=== PATIENT | female | born 1995 | race Caucasian/White ===

== ENCOUNTER 2016-04-12 05:12 | Day surgery (SDC) | payer MEDICAID ==
[2016-04-12] VITALS (14 sets, daily range): BP systolic 103–131; BP diastolic 59–81; Ht 160 cm; Wt 52.3 kg
[~2016-04-12] VITALS: Ht 160 cm; Wt 52.3 kg
[2016-04-12 05:55] LABS: BASOPHILS 0.3 % (0.0-2.0); EOSINOPHILS 4.3 % (0-7); HEMOGLOBIN 13.8 g/dL (12-16); IMMATURE GRANULOCYTES 0.2 % (0-5); LYMPHOCYTES 27.9 % (15-50); MCH 29.6 pg (26.0-34.0); MCHC 34.5 g/dL (31.0-37.0); MCV 85.8 fL (80.0-100.0); MEAN PLATELET VOLUME 10.3 fL (7.4-10.4); MONOCYTES 7.1 % (2-11); NEUTROPHILS 60.2 % (40-80); PLATELET COUNT 186 10x3/uL (130-400); RBC 4.66 10x6/uL (4.00-5.40); RDW 13.2 % (11.5-14.5); WBC 6.2 10x3/uL (4.8-10.8)
[2016-04-12] MEDS ORDERED: IBUPROFEN600 MG PO (08:45)
[2016-04-12] MEDS ORDERED: PERCOCET 5-3251 TAB PO (08:46)
--- NOTE | 2016-04-12 08:50 | NUR ---
DR ZAPATA REQUESTED LAB DRAW AND INSERTION OF FLOEY IN THE RR
--- NOTE | 2016-04-12 08:51 | NUR ---
LAB DRAW DONE
[2016-04-12 08:58] LABS: BASOPHILS 0.1 % (0.0-2.0); EOSINOPHILS 1.4 % (0-7); IMMATURE GRANULOCYTES 0.1 % (0-5); LYMPHOCYTES 18.5 % (15-50); MCH 29.2 pg (26.0-34.0); MCHC 33.4 g/dL (31.0-37.0); MCV 87.5 fL (80.0-100.0); MEAN PLATELET VOLUME 10.4 fL (7.4-10.4); MONOCYTES 3.3 % (2-11); NEUTROPHILS 76.6 % (40-80); PLATELET COUNT 183 10x3/uL (130-400); WBC 7.3 10x3/uL (4.8-10.8)
[2016-04-12 09:01] LABS: HEMOGLOBIN 10.5 g/dL (12-16); RBC 3.59 10x6/uL (4.00-5.40)
[2016-04-12 09:02] LABS: HEMATOCRIT 31.4 % (36.0-48.0)
--- NOTE | 2016-04-12 09:09 | NUR ---
NELLA ALCARAZ PLACED THE FLOEY CATHETER IN RR
--- NOTE | 2016-04-12 10:14 | NUR ---
[address] [place] [address] [address]ED [address] [place] AT DR. LYN'S OFFICE TO RELAY TO DR. LYN.
[2016-04-12 12:15] LABS: BASOPHILS 0.1 % (0.0-2.0); EOSINOPHILS 0.2 % (0-7); HEMATOCRIT 29.9 % (36.0-48.0); HEMOGLOBIN 10.4 g/dL (12-16); IMMATURE GRANULOCYTES 0.2 % (0-5); LYMPHOCYTES 10.3 % (15-50); MCH 29.7 pg (26.0-34.0); MCHC 34.8 g/dL (31.0-37.0); MCV 85.4 fL (80.0-100.0); MEAN PLATELET VOLUME 10.1 fL (7.4-10.4); MONOCYTES 1.3 % (2-11); NEUTROPHILS 87.9 % (40-80); PLATELET COUNT 198 10x3/uL (130-400); RDW 13.1 % (11.5-14.5); WBC 9.1 10x3/uL (4.8-10.8)
--- NOTE | 2016-04-12 14:03 | NUR ---
1345 LYING, SITTING AND STANDING BP DONE REPORT TO DR. LYN, ORDERS RECEIVED, SUPERVISIOR NOTIFIED, LAB NOTIFIED, PT. INFORMED.
--- NOTE | 2016-04-12 14:34 | NUR ---
1430 REPORT PHONED TO PHILIP KING, WOODY PAD CHANGED TWICE.
--- NOTE | 2016-04-12 14:55 | NUR ---
1445 INTAKE HAS BEEN ORALLY 500CC
--- NOTE | 2016-04-12 16:45 | NUR ---
PT IS LYING IN BED. BLOOD RECEIVED AND STARTED. 98.4 98 118/80 16. WITNESSED WITH TRUNG BANSAL L& DELIVERY.
--- NOTE | 2016-04-12 17:00 | NUR ---
PT IS DOING WELL OFFER NO COMPLAINTS. BED IS LOW. SIDE RAILS UP X 2 AND CALL LIGHT IN REACH.
--- NOTE | 2016-04-12 17:46 | NUR ---
PT IS SITTING UP IN BED EATING. SHE OFFERS NO COMPLAINTS. TOLERATING THE INFUSION WELL. HER IS AT BEDSIDE. BED IS LOW, SIDE RAILS UP X 2 AND CALL LIGHT IN REACH.
--- NOTE | 2016-04-12 18:16 | NUR ---
WOODY PAD CHANGE. SMALL LOCHIA RUBRA NOTED ON PAD. PT IS DOING WELL. OFFERS NO COMPLAINTS. HUSBANDS AT BEDSIDE. PT ATE DINNER AND TOLERATED WELL. BED IS LOW, SIDE RAILS UP X 2 AND CALL LIGHT IN REACH.
--- NOTE | 2016-04-12 19:45 | NUR ---
ASSESSMENT PER FLOW SHEET, VS OBTAINED, IV IN LEFT FA INTACT WITH NO REDNESS OR EDEMA, BLOOD FINISHED INFUSING, NS STARTED AT 125 ML/HR TO FLUSHED LINE, PT REPORTS FLATUS, STATES "I FEEL LIKE I NEED TO HAVE A BM", INFORMED PT THAT I WILL SEE ABOUT GETTING AN ORDER TO REMOVE ANDRE AND THEN GET HER UP TO BR, PT STATES "THANK YOU SO MUCH, I HAVE BEEN WANTING THIS CATHETER OUT", HALF DOLLAR SIZE BLOOD NOTED ON WOODY PAD, FRESH PAD PLACED, ANDRE CATH INTACT, EMPTIED 350 MLS OF CLEAR YELLOW URINE FROM ANDRE CHAMBER TO ANDRE BAG, PT DENIES NEEDS OR PAIN, SPOUSE AT BEDSIDE
--- NOTE | 2016-04-12 20:15 | NUR ---
DR LYN ON L&D UNIT, REPORT OF VS, OUTPUT, AMOUNT OF BLOOD ON WOODY PAD, AND PT NEEDING TO HAVE BM, ORDERS RECEIVED TO REMOVE ANDRE
--- NOTE | 2016-04-12 20:20 | NUR ---
ANDRE CATH REMOVED, TIP INTACT, EMPTIED 700 MLS OF CLEAR YELLOW URINE FROM ANDRE, PT UP TO BR, GAIT STEADY, PT DENIES ANY NAUSEA, DIZZINESS, LIGHT HEADEDNESS, PT TO COMMODE, PT INST TO USE CALL LIGHT FOR ANY ASSISTANCE, INFORMED PT THAT I WILL BE RIGHT BACK WITH WOODY PANTIES, PT VERBALIZES UNDERSTANDING, DENIES NEEDS AT THIS TIME
--- NOTE | 2016-04-12 20:27 | NUR ---
PT FINISHED, HAD BM AND VOIDED WITH NO DIFFICULTY, WOODY PAD AND PANTIES PLACED, NO VAG BLEEDING NOTED, PT BACK TO BED, STATES "I FEEL PRETTY GOOD", PT DENIES NEEDS
--- NOTE | 2016-04-12 21:20 | NUR ---
PT RESTING, VS OBTAINED, REQUESTED AND SERVED GERARD, DENIES FURTHER NEEDS
[2016-04-12 21:59] LABS: BASOPHILS 0.1 % (0.0-2.0); EOSINOPHILS 0.9 % (0-7); HEMATOCRIT 28.5 % (36.0-48.0); HEMOGLOBIN 9.8 g/dL (12-16); IMMATURE GRANULOCYTES 0.2 % (0-5); LYMPHOCYTES 18.2 % (15-50); MCH 28.4 pg (26.0-34.0); MCHC 34.4 g/dL (31.0-37.0); MONOCYTES 6.9 % (2-11); NEUTROPHILS 73.7 % (40-80); PLATELET COUNT 178 10x3/uL (130-400); RBC 3.45 10x6/uL (4.00-5.40); RDW 14.7 % (11.5-14.5)
--- NOTE | 2016-04-12 22:00 | NUR ---
PT WATCHING TV, BEDDING PROVIDED TO SPOUSE, PT DENIES NEEDS OR PAIN
[2016-04-12 22:12] LABS: MCV 82.6 fL (80.0-100.0)
--- NOTE | 2016-04-12 22:50 | NUR ---
DR LYN NOTIFIED OF CBC, WILL ADM 2ND UNIT
--- NOTE | 2016-04-12 23:00 | NUR ---
2ND UNIT OF [facility] INIATED, VERIFIED PER THIS NURSE AND MIRIAM BECKER RN, VS STARTED, PT INST ON AND VERBALIZES UNDERSTANDING OF TRANSFUSION REACTION, SPOUSE AT BEDSIDE
--- NOTE | 2016-04-12 23:15 | NUR ---
THIS RN CONTINUES AT BEDSIDE, PT REQUESTED AND SERVED SANDWICH TRAY AND FRESH H20, PT DENIES PAIN
--- NOTE | 2016-04-12 23:30 | NUR ---
THIS RN AT BEDSIDE, VS STABLE, PT DENIES ANY TRANSFUSION REACTION, TOLERATING INFUSION WELL, DENIES NEEDS AT THIS TIME, SPOUSE AT BEDSIDE
[2016-04-13] VITALS: BP 103/67
--- NOTE | 2016-04-13 | NUR ---
PT RESTING WITH EYES CLOSED, RESP QUIET, NO DISTRESS NOTED, LEFT UNDISTURBED AT THIS TIME, SPOUSE AT BEDSIDE
[2016-04-13 00:30] VITALS: BP 124/69
--- NOTE | 2016-04-13 00:30 | NUR ---
PT RESTING WITH EYES CLOSED, RESP QUIET, NO DISTRESS NOTED, LEFT UNDISTURBED AT THIS TIME, VS CONTINUE AND STABLE, SPOUSE AT BEDSIDE
--- NOTE | 2016-04-13 01:05 | NUR ---
PT CHIP APPLYING MACHINE TENDER LIGHT, ADRIENNE DESHPANDE, RN TO ROOM, ASSISTS PT TO BR, REPORTS PT VOIDED WITH NO DIFFICULTY, PT BACK TO BED, EXTRA PILLOW PROVIDED
[2016-04-13 01:45] VITALS: BP 132/64
--- NOTE | 2016-04-13 01:45 | NUR ---
2ND UNIT OF [facility] FINISHED INFUSING, NS STARTED TO FLUSH LINE, INFORMED PT THAT LAB SHOULD BE DOWN AROUND 2:45/3:00 TO DRAW BLOOD, PT VERBALIZES UNDERSTANDING, DENIES NEEDS AT THIS TIME, SPOUSE AT BEDSIDE
--- NOTE | 2016-04-13 02:45 | NUR ---
PT RESTING WITH EYES CLOSED, AROUSES TO SOFT VERBAL STIMULATION, VS OBTAINED, PT UP TO BR, VOIDED BY SELF WITH NO DIFFICULTY, PT BACK TO BED, NS FINISHED INFUSING, IV CONVERTED TO SALINE LOCK, FLUSHED WITH NO DIFFICULTY, PT DENIES NEEDS OR PAIN AT THIS TIME, SPOUSE ASLEEP IN RECLINER
--- NOTE | 2016-04-13 03:15 | NUR ---
DR LYN ON UNIT, REPORT OF CBC NOT DRAWN YET, DR LYN ORDERS TO CALL HER IF CRIT IS <26, OTHER FRAIRE, MAY D/C PT EARLY AM, AND FOLLOW UP WITH HER IN 2 WEEKS
--- NOTE | 2016-04-13 04:25 | NUR ---
LAB TO ROOM FOR BLOOD DRAW
--- NOTE | 2016-04-13 04:40 | NUR ---
PT RESTING WITH EYES CLOSED, RESP QUIET, NO DISTRESS NOTED, LEFT UNDISTURBED AT THIS TIME, SPOUSE ASLEEP IN RECLINER
[2016-04-13 05:12] LABS: BASOPHILS 0.3 % (0.0-2.0); EOSINOPHILS 1.9 % (0-7); HEMATOCRIT 31.5 % (36.0-48.0); HEMOGLOBIN 10.9 g/dL (12-16); IMMATURE GRANULOCYTES 0.3 % (0-5); LYMPHOCYTES 26.7 % (15-50); MCH 28.8 pg (26.0-34.0); MCHC 34.6 g/dL (31.0-37.0); MCV 83.3 fL (80.0-100.0); MEAN PLATELET VOLUME 10.4 fL (7.4-10.4); MONOCYTES 7.6 % (2-11); NEUTROPHILS 63.2 % (40-80); PLATELET COUNT 153 10x3/uL (130-400); RBC 3.78 10x6/uL (4.00-5.40); RDW 14.5 % (11.5-14.5)
--- NOTE | 2016-04-13 06:34 | NUR ---
PT RESTING WITH EYES CLOSED, RESP QUIET, NO DISTRESS NOTED, LEFT UNDISTURBED AT THIS TIME, SPOUSE ASLEEP IN RECLINER
--- NOTE | 2016-04-13 07:00 | NUR ---
SHIFT REPORT TO DAY SHIFT
[2016-04-13 07:30] VITALS: BP 110/69
--- NOTE | 2016-04-13 07:45 | NUR ---
PT WAS RECEIVED THIS AM, LYING IN BED SLEEPING. HER IS AT BEDSIDE. SHE OFFERS NO COMPLAINTS. I TOLD HER THAT WE HAVE A DISCHARGE ORDER ON HER. GEN- AWAKE AND ALERT. LUNGS- CLEAR. HEART- RRR. ABD- SOFT, NT, BS+. EXT- NO EDEMA. BED IS LOW. CALL LIGHT IN REACH ANDSIDE RAILS UP X 2.
--- NOTE | 2016-04-13 08:30 | NUR ---
PT IS SLEEPING. BED IS LOW, SIDE RAILS UP X 2 AND CALL LIGHT IN REACH.
--- NOTE | 2016-04-13 09:50 | NUR ---
PT WAS DISCHARGED HOME PER ORDER. DISCHARGE INSTRUCTIONS GIVEN , PRESCRIPTIONS GIVEN AND FU APPT GIVEN. PT ASKED FOR4 A WORK EXCUSE TO GO BACK TO WORK NEXT SUN AFTER FU WITH DR LYN ON SUNDAY. PT TAKEN TO VEHICLE BY WHEELCHAIR.
--- NOTE | 2016-04-17 09:18 | OP ---
PATIENT NAME: BUNNY FARNSWORTH MEDICAL RECORD: [id number] :94 LOCATION:D.OPS ADMISSION DATE: SURGEON: MINNIE FLOWER MD DATE OF OPERATION: 04/12/2016 PREOPERATIVE DIAGNOSES: 1. Intrauterine at 18 weeks 6 days with an 11-week demise. 2. Prolonged missed versus partial molar . POSTOPERATIVE DIAGNOSES: 1. Intrauterine at 18 weeks 6 days with an 11-week demise. 2. Prolonged missed versus partial molar . SURGEON: Minnie Flower MD ANESTHESIA: Laryngeal mask anesthesia with Jax Johnson CRNA. PROCEDURE: Dilation and curettage. FINDINGS: Uterus sounded to 13 cm. Copious tissue with a total 2100 cc combined estimated blood loss and products of conception. Twenty units of Pitocin in 1 liter of normal saline given IV intraoperatively, 800 mcg of Cytotec placed rectally postop. DESCRIPTION OF PROCEDURE: After informed consent was given, the patient was taken to the operating room where a laryngeal mask anesthesia was placed and found to be adequate. She was placed in a dorsal lithotomy position in [facility]. She was prepped and draped sterilely including a vaginal prep. A catheter was placed into the bladder and bladder drained with approximately 30 cc of clear urine return. A bivalve speculum was then placed in the vagina, the cervix visualized and grasped anteriorly with a single-tooth tenaculum. The uterus was sounded sounding to 13 cm. We then dilated the cervix to approximately 10 mm and sharp and suction curettage were employed until a gritty texture was noted circumferentially within the endometrial cavity. A total of 2100 cc of blood and products of conception were evacuated from the uterus. A sample of the tissue was also sent for SNP-Microarry Chromosome analysis as well. Once bleeding had significantly decreased, a gritty texture was noted circumferentially within the endometrial cavity, all instruments were removed. The single-tooth tenaculum was removed and silver nitrate was used at the tenaculum sites with excellent hemostasis noted. Fundal massage was employed and the vaginal bleeding then ceased. 800 mcg of Cytotec was placed rectally to aid additionally in hemostasis. The patient was returned to a supine position, awakened and taken into the recovery room in stable condition. The patient tolerated procedure well. Sponge, lap and instrument counts were reported correct times 2. Specimen:Products of conception EBL: 2100 cc (blood and products of conception) IV FLUIDS: 1600. Urine output: 30 cc. COMPLICATIONS: None. OPERATIVE REPORT [id number] BUNNY FARNSWORTH TRANSINT:[id number] Voice Confirmation ID: [id number] DOCUMENT ID: [id number] MINNIE FLOWER MD at 0918 CC: [id number] DICTATION DATE: 04/14/16 0757 PERIODONTAL ASSISTANT: 04/14/16 0829 [facility] 04/13/16 [id number] [place] [address]
== END 2016-04-13 09:50 | disposition home or self-care (01) ==
LOC: D.WS 05:12 → D.OPS 05:12 → D.PAN 07:30 → D.WS 15:10 → D.OPS 04-13 09:50
PROVIDERS: Specialist
DX: O02.1 Missed abortion (principal)

== ENCOUNTER → 2016-05-22 12:48 | Outpatient (CLI) | payer MEDICAID ==
[2016-04-12 17:51] VITALS: BMI 20.4
[~2016-05-22 12:48] MED LIST: IBUPROFEN600 MG PO; PERCOCET 5-3251 TAB PO
== END | disposition home or self-care (01) ==
LOC: D.US 12:45
DX: O02.0 Blighted ovum and nonhydatidiform mole (principal)